=== PATIENT | female | born 1970 | race Caucasian/White ===

== ENCOUNTER → 2019-12-12 | Outpatient (CLI) | payer BC ==
--- NOTE | 2019-12-13 08:53 | CT ---
EXAMINATION TYPE: CT ankle LT wo con DATE OF EXAM: 12/12/2019 COMPARISON: None HISTORY: 49-year-old female left ankle pain TECHNIQUE: Contiguous axial scanning of the left ankle without IV contrast. Coronal and sagittal sharmin nstructions performed. 3-D reconstructions generated on a dedicated independent workstation. CT DLP: 210.7 mGycm Automated exposure control for dose reduction was used. FINDINGS: There is end-stage degenerative change of the tibiotalar joint with [id number] articulation along t he anterior half with associated subchondral sclerosis, bulky marginal spurring, and mild bony remode ling. Large 1.2 cm geode within the medial malleolus. Extensive loose bodies are present measuring up to 1.7 cm anterior, 1.1 cm posteriorly, and 1.0 cm be low the lateral malleolus. In addition, there is moderate to severe degenerative change along the medial half of the posterior s ubtalar joint and moderate degenerative change along the middle subtalar joint. Some marginal spurring and subchondral cystic change at the talonavicular joint and also along the la teral aspect of the calcaneal cuboidal joint. Small delineation to the Achilles tendon. No acute fracture seen. IMPRESSION: 1. END-STAGE TIBIOTALAR JOINT OA WITH LAAR-MS-SDYY ARTICULATION AND MILD BONY REMODELING ALONG THE AN TERIOR HALF OF THE TIBIOTALAR JOINT. 2. EXTENSIVE LOOSE BODIES MEASURING UP TO 1.7 CM ANTERIORLY AND 1.1 CM POSTERIORLY. ADDITIONAL LOOSE BODIES MEASURING UP TO 1.0 CM BELOW THE LATERAL MALLEOLUS. 3. MODERATE TO SEVERE OSTEOARTHROSIS ALONG THE MEDIAL HALF OF THE POSTERIOR SUBTALAR JOINT AND MODERA TE WITHIN THE MIDDLE SUBTALAR JOINT. 4. MILD TO MODERATE DEGENERATIVE CHANGE IN THE MIDFOOT INVOLVING THE LATERAL ASPECT OF THE CALCANEOCU BOIDAL JOINT AND ALSO THE TALONAVICULAR JOINT.
== END | disposition home or self-care (01) ==
LOC: RADCTMAIN 16:59
PROVIDERS: ATTEND Orthopaedic Surgery
DX: M19.072 Primary osteoarthritis, left ankle and foot (principal)

== ENCOUNTER 2020-01-24 05:56 | Inpatient (IN) | payer BC ==
[2020-01-22 16:16] VITALS: BMI 25.8
[~2020-01-24 05:56] MED LIST: HYDROmorphone 0.5 MG/0.5 ML SYRINGE IVP PRN; LIDOCAINE 1% 20 ML VIAL (10MG/ML) FOR IV START INTRADERMA PRN; MIDAZOLAM 2 MG/2 ML VIAL IV PRN; fentaNYL (PF) 50 MCG/ML 2 ML AMP IVP PRN
[2020-01-24] MEDS: LACTATED RINGERS 1,000 ML IV SCH ×4 (06:27→11:07)
[2020-01-24] MEDS: DEXAMETHASONE SOD PHOSPHATE 10 MG/ML 1 ML VIAL IV ONE ×2 (06:38→11:07)
[2020-01-24] MEDS: ONDANSETRON 4 MG/2 ML VIAL IVP ONE ×2 (06:39→11:07)
[2020-01-24] MEDS ORDERED: GLYCOPYRROLATE 0.2 MG/ML 2 ML VIAL ONE (07:35)
[2020-01-24] MEDS ORDERED: ROPIVACAINE 5 MG/ML 30 ML VIAL ONE (07:35)
[2020-01-24] MEDS ORDERED: NEOSTIGMINE 1 MG/ML 10 ML VIAL ONE (07:35)
[2020-01-24] MEDS ORDERED: HYDROmorphone (PF) 1 MG/ML ONE (07:35)
[2020-01-24] MEDS ORDERED: fentaNYL (PF) 50 MCG/ML 2 ML AMP ONE (07:35)
[2020-01-24] MEDS ORDERED: DEXAMETHASONE SOD PHOSPHATE 4 MG/ML 1 ML VIAL ONE (07:35)
[2020-01-24] MEDS ORDERED: ROCURONIUM BROMIDE 10 MG/ML 5 ML VIAL IV ONE (07:35)
[2020-01-24] MEDS ORDERED: PROPOFOL 10 MG/ML 20 ML VIAL IV ONE (07:35)
[2020-01-24] MEDS ORDERED: SUCCINYLCHOLINE CHLORIDE 100 MG/5 ML SYR IV ONE (07:35)
[2020-01-24] MEDS ORDERED: LIDOCAINE 1% INJ 10MG/ML (20 ML MDV) ONE (07:35)
[2020-01-24] MEDS ORDERED: LACTATED RINGERS 1,000 ML IV ONE (10:00)
[2020-01-24] MEDS ORDERED: SENNOSIDES-DOCUSATE SODIUM 1 EACH TAB PO PRN (10:40)
[2020-01-24] MEDS ORDERED: HYDROcodone/APAP 5-325MG 1 EACH TAB PO PRN (10:40)
[2020-01-24] MEDS ORDERED: hydrOXYzine PAMOATE 25 MG CAP PO PRN (10:40)
[2020-01-24] MEDS ORDERED: HYDROmorphone 0.5 MG/0.5 ML SYRINGE IVP PRN (10:40)
[2020-01-24] MEDS ORDERED: ONDANSETRON 4 MG/2 ML VIAL IVP PRN (10:40)
--- NOTE | 2020-01-24 10:51 | P.OP ---
Date of Procedure: 01/24/20 Preoperative Diagnosis: Posttraumatic left ankle and subtalar arthritis Postoperative Diagnosis: Same Procedure(s) Performed: 1. Left tibiotalocalcaneal fusion (fusion of the tibia talar joint through an anterior approach and fusion of the subtalar joint through a sinus tarsi approach) 2. Application of short leg splint by physician, left ankle Anesthesia: BRENDA, jaime Surgeon: Gorge Garsia [employer] Instructor #1: Paige Harman Estimated Blood Loss (ml): 5 IV fluids (ml): 1,200 Pathology: none sent Condition: stable Disposition: PACU Indications for Procedure: The patient is a very pleasant previously healthy 49-year-old female who sustained severe trauma resulting in the left ankle and pelvis fracture about 30 years ago. She went on to develop progressively worsening posttraumatic arthritis in the ankle and subtalar joint. She initially managed with nonsurgical treatment including activity modification, braces, occasional corticosteroid injections, and NSAID pain medications. She failed nonsurgical treatment and came to my office specifically to discuss surgical options. We discussed joint sparing procedure such as cheilectomy but due to the extent of the arthritis I thought they would be futile. We discussed joint sacrificing procedures including a total ankle replacement and fusion. Due to the amount of arthritic changes in the subtalar joint I also felt that the subtalar joint needed to be included in surgery. We had a long discussion on ankle replacements and ankle fusions. The patient is relatively young 49 and is very active working out and hiking. One option for her was an ankle replacement and subtalar fusion and the second option discussed was a tibial talocalcaneal fusion. Based on the patient's relatively young age and desired high activity level I thought that the risk of early failure of an ankle replacement was too high. My recommendation was to fuse both the ankle and the subtalar joint. We discussed that my surgical plan was to use an anterior approach to the ankle so if in the future she requires conversion to a total ankle replacement she will have both of the malleoli and anterior approach available. The patient agreed to this. She was well aware of the potential risks and limitations in function of the tibial talocalcaneal fusion, but wanted something durable so she could attempt to work out. I stressed that she may have some limitations in function. She understood and agreed to this. We discussed potential risks and complications of surgery including but not limited to risk of anesthesia, infection, delayed wound healing, damage to local blood vessels or nerves, nonunion, malunion, systematic hardware, intraoperative fracture, postoperative fracture, DVT, PE, other medical complications, generalized to satisfaction with surgery, an inability to regain preinjury level of function, need for further surgery, and possibly loss of life or limb. Description of Procedure: The patient was identified in preoperative holding and the correct left leg was marked with my initials. I reviewed the consent form with the patient and her mom. All their questions were answered. The patient was then brought back to the operating room by anesthesia after receiving a block in preoperative holding. The patient was positioned on the or table where general anesthetic and preoperative antibiotics were given. A tourniquet was applied the proximal aspect the left thigh. A bump was placed on the left buttock internally rotating the leg to neutral. The right leg was secured to the table with foam tape. A ramp was placed under the left leg to facilitate imaging. The left leg was then prepped and draped in standard sterile fashion. Prior to starting surgery timeout was performed identifying the correct patient, operative extremity, and procedure. The patient's leg was then elevated, exsanguinated with an Esmarch bandage, and the tourniquet was inflated to 250 mmHg. I began by outlining a straight anterior incision to the ankle. Skin incision was made with a scalpel. Dissection was carried down carefully to the subcutaneous tissue with tenotomy scissors. The branch of the superficial peroneal nerve was identified distally in the incision carefully retracted laterally. I sharply incised the extensor retinaculum and developed the interval between the tibialis anterior and EHL tendon. Crossing veins were controlled with electrocautery. The neurovascular bundle was identified and retracted laterally. The capsule was incised longitudinally in line with the skin incision and the joint was exposed. There was a large loose body in the anterior recess of the tibiotalar joint which was excised and handed off to the back table. On inspection of the joint there was complete articular cartilage loss from the talar dome and tibial plafond and. Using a series of curettes and osteotomes the bone was thoroughly fenestrated to facilitate fusion. The wound was irrigated and all cartilage remnants were removed. Attention was then turned to the subtalar joint. A sinus tarsi incision was marked out from the tip of the fibula extending distally over the posterior facet of the subtalar joint toward the fourth ray. Skin incision was made with a scalpel and dissection was carried down carefully through the subcutaneous tissue. The peroneal tendons were identified and retracted plantarly. The capsule of the subtalar joint was opened. Remaining articular cartilage was removed using curettes and osteotomes. K wires were placed to distract the joint. At this point a 2.5 mm drill bit was used to thoroughly perforate the exposed subchondral bone of both the ankle and subtalar joint to facilitate fusion. A mixture of augment and crushed local bone graft was mixed into a slurry and packed into both the fusion sites. I then positioned the ankle for fusion and K wires were placed across the joint to hold the reduction. Its position was verified both clinically and radiographically. I then positioned the subtalar joint for fusion and held the reduction with a K wire placed up to the anterior process of the calcaneus and into the talar head. At this point I elected to place an anterior fusion plate over the ankle joint. The joint was centered and held in place an olive-tipped K wire. 2 nonlocking 3.5 mm screws were placed in the talar head. As the screws were seated the plate shifted laterally but still centered over the tibial canal. A nonlocking, cannulated 7.0 mm screw was then placed through the plate and across the subtalar joint jittering excellent compression. An axial view was obtained verifying that the screw was within the calcaneus. I then placed 2 nonlocking 4.5 mm screws proximal to the ankle joint through oblong holes. The screws were placed proximally through the oblong holes to generate compression. A nonlocking 4.5 mm screw was placed in the most proximal hole of the plate taking care to angle the screw medially due to lateral position of the plate. A bicortical screw was placed. I then placed a final locking 4.5 mm screw proximal to the ankle. Final fluoroscopic images were taken. The wound was thoroughly irrigated and closed in layers with 0 Vicryl for the ankle capsule, a running 0 Vicryl in the extensor retinaculum, 3- 0 Monocryl for the deep subcu, and 3-0 nylon Algor modification of the Donati stitch for the skin. The sinus tarsi incision was irrigated and closed in layers. The tourniquet was let down. I verified all instrument, sponge, and sharp counts were correct. A sterile dressing consisting of Betadine soaked Ad aptic, 4 x 4, and web roll was applied. The patient was then awoken from her anesthetic transferred from the OR table to a gurney, and brought to recovery having tolerated the procedure well. Skye schuster PA-C was required as a skilled vet assistant for patient positioning, surgical exposure, retraction, placement of hardware, closure of wound, and application of splint. Plan: The patient is going to be admitted overnight for 2 doses of postoperative antibiotics, DVT prophylaxis with Lovenox, and physical therapy. She will also need pain control. I would like to transition her from IV to oral pain medications. She can discharge home when her pain is controlled with oral pain medicine and she passes physical therapy. She will need follow-up in the office in 2 weeks for splint removal, wound check, and nonweightbearing x-rays of the ankle out of the splint.
[2020-01-24] MEDS: HYDROmorphone 0.5 MG/0.5 ML SYRINGE IVP PRN (11:30)
--- NOTE | 2020-01-24 12:04 | XR ---
Limited left ankle HISTORY: Arthrodesis 3 intraoperative C-arm images document the procedure
--- NOTE | 2020-01-24 12:04 | FL ---
Fluoroscopy HISTORY: Arthrodesis 40 seconds fluoroscopy time supplied to the referring clinician. 3 intraoperative C-arm images docum ent the procedure. See dictated report from orthopedic surgery.
[2020-01-24 12:15] LABS: Basophils % (A) 0 %; Eosinophils % (A) 0 %; HCT 42.1 % (34.0-46.0); HGB 13.9 gm/dL (11.4-16.0); Lymphocytes # (A) 0.8 k/uL (1.0-4.8); Lymphocytes % (A) 8 %; MCH 31.4 pg (25.0-35.0); MCV 95.2 fL (80.0-100.0); Mean Platelet Volume 6.9; Monocytes # (A) 0.1 k/uL (0-1.0); Monocytes % (A) 1 %; Neutrophils # (A) 8.8 k/uL (1.3-7.7); Neutrophils % (A) 89 %; Platelet Count 305 k/uL (150-450); RBC 4.42 m/uL (3.80-5.40); RDW 12.8 % (11.5-15.5); WBC 9.8 k/uL (3.8-10.6)
[2020-01-24] MEDS: HYDROcodone/APAP 5-325MG 1 EACH TAB PO PRN ×2 (14:32→22:36)
[2020-01-24] MEDS: HYDROmorphone 1 MG/ML 1 ML SYRINGE IVP PRN (19:17)
[2020-01-25] MEDS: HYDROmorphone 1 MG/ML 1 ML SYRINGE IVP PRN ×2 (00:08→04:06)
[2020-01-25] MEDS: LACTATED RINGERS 1,000 ML IV SCH ×3 (06:15→14:09)
[2020-01-25] MEDS: HYDROcodone/APAP 5-325MG 1 EACH TAB PO PRN (07:29)
[2020-01-25] MEDS: ENOXAPARIN 40 MG/0.4 ML SYRINGE SQ SCH (07:29)
[2020-01-25] MEDS ORDERED: HYDROcodone/APAP 7.5-325MG 1 EACH TAB PO PRN (08:22)
[2020-01-25] MEDS: HYDROmorphone 0.5 MG/0.5 ML SYRINGE IVP PRN ×3 (14:05→23:02)
--- NOTE | 2020-01-25 16:02 | P.DS ---
Providers Date of admission: 01/25/20 00:26 Expected date of discharge: 01/25/20 Attending physician: Gorge Garsia Primary care physician: Stated None Hospital Course: This is a 49-year-old female who is otherwise healthy that sustained a left ankle fracture about 30 years ago. She went on to develop left severe posttraumatic tibiotalar and subtalar joint arthritis. After nonsurgical treatment failed to control the patient's symptoms, the patient requested surgery. Patient underwent a left tibiotalar and subtalar joint fusion on 01/24/[address] Garsia. The patient was admitted to [facility] following this procedure. Procedure was performed without complication or sequelae. Patient is doing well postoperatively. Vital signs and postoperative labs are stable on postoperative day #1. The patient is remaining nonweightbearing on the operative leg, and transferring with a walker with minimal issue. Patient was seen at bedside this morning. Patient states that she is feeling well this morning. Her pain was uncontrolled throughout the night, although she is feeling better this morning and states is currently controlled. She's been up with physical therapy this morning. She is ambulating with a walker with minimal issue. She denies chest pain, shortness breath, nausea, vomiting, fevers, chills. Vital signs stable. On exam the patient is sitting up in bed in no apparent distress. Patient is alert and oriented 3. On inspection of the left lower extremity, a Bulky Whitman splint is in place. The splint is clean, dry, intact. The toes are warm and well perfused with brisk capillary refill. Sensation is intact to the toes. There is no pain to passive range of motion of toes. She is able to actively move her toes without difficulty. Right calf if soft and nontender. Right dorsalis pedis pulse +2. The patient is discharged home in good condition. Please see discharge orders. Please refer to the med rec for accurate list of medications. Plan - Discharge Summary Discharge Rx Participant: Yes New Discharge Prescriptions: New Aspirin 325 mg PO BID #28 tab Docusate [Colace] 100 mg PO BID #60 capsule HYDROcodone/APAP 7.5-325MG [[place] 7.5-325] 1 tab PO Q4H PRN 7 Days #40 tab PRN Reason: Pain Discharge Medication List Aspirin 325 mg PO BID #28 tab 01/25/20 [Rx] Docusate [Colace] 100 mg PO BID #60 capsule 01/25/20 [Rx] HYDROcodone/APAP 7.5-325MG [[place] 7.5-325] 1 tab PO Q4H PRN 7 Days #40 tab 01/25/20 [Rx] Follow up Appointment(s)/Referral(s): Gorge Garsia MD [Medical Doctor] - 2 Weeks Activity/Diet/Wound Care/Special Instructions: -Strict non-weight bearing on your operative leg. Do not remove your splint; Keep splint clean, dry, and intact -Use crutches, knee scooter, or a walker to ambulate after surgery. -Elevate and ice operative leg to help reduce swelling and control pain. -Take pain medications as prescribed. Take Colace as a stool softener. Take aspirin as prescribed for blood clot prevention. -Follow-up appointment with Dr. Garsia in the office in 2 weeks. -Call the office with any questions or concerns, Discharge Disposition: HOME SELF-CARE
[2020-01-25] MEDS: HYDROcodone/APAP 10-325MG 1 EACH TAB PO PRN ×2 (16:29→20:46)
[2020-01-25] MEDS ORDERED: HYDROmorphone 0.5 MG/0.5 ML SYRINGE IVP STA (19:18)
[2020-01-26] MEDS: HYDROcodone/APAP 10-325MG 1 EACH TAB PO PRN ×4 (00:46→13:32)
[2020-01-26] MEDS: HYDROmorphone 0.5 MG/0.5 ML SYRINGE IVP PRN (02:24)
[2020-01-26] MEDS: LACTATED RINGERS 1,000 ML IV SCH ×2 (03:52→11:35)
[2020-01-26 07:35] VITALS: BP 118/70; PULSE 80; RESP 17; TEMP 97.7
[2020-01-26] MEDS: HYDROmorphone 1 MG/ML 1 ML SYRINGE IVP PRN (07:40)
[2020-01-26] MEDS: ENOXAPARIN 40 MG/0.4 ML SYRINGE SQ SCH (07:41)
--- NOTE | 2020-01-26 09:53 | P.PN ---
Progress Note - Text Progress Note Date: 01/26/20 This is an addendum to discharge summary. The patient's discharge was held yesterday secondary to pain management issues. Patient states that she is doing better today. She will be discharged to home today. Please see previous discharge summary. Her [place] has been increased to 10/325 mg.
--- NOTE | 2020-01-28 14:16 | P.ANPRN ---
Procedure Note - Anesthesia - Nerve Block Performed Left Popliteal Single Time Out Performed: Yes Date of Procedure: 01/24/20 Procedure Start Time: : Procedure Stop Time: :09 Location of Patient: PreOp Indication: Acute Post-Operative Pain, Requested by Surgeon Sedation Type: Sedate with meaningful contact maintained Preparation: Sterile Prep Position: Right Lateral Needle Types: Pajunk Needle Gauge: 21 Ultrasound used to visualize needle placement: Yes Ultrasound used to observe medication spread: Yes Blood Aspirated: No Pain Paresthesia on Injection Noted: No Resistance on Injection: Normal Image Stored and Saved: Yes Events: Uneventful and Well Tolerated (ropi .5% 30 cc plus dexamethasone 4 mg)
== END 2020-01-26 14:37 | disposition home or self-care (01) | DRG 494 ==
LOC: OR 05:56 → 4SSUR 10:27 → OR 01-25 00:26 → OBSVTOIN 01-26 07:52
PROVIDERS: ADMIT Orthopaedic Surgery; ATTEND Orthopaedic Surgery
PROC: 0SGG04Z Fusion of Left Ankle Joint with Internal Fixation Device, Open Approach (ICD-10-PCS; 2020-01-24)
PROC: 0SGG07Z Fusion of Left Ankle Joint with Autologous Tissue Substitute, Open Approach (ICD-10-PCS; principal; 2020-01-24 07:30)
DX: M19.172 Post-traumatic osteoarthritis, left ankle and foot (principal); E78.5 Hyperlipidemia, unspecified; V89.2XXS Person injured in unspecified motor-vehicle accident, traffic, sequela; Z87.81 Personal history of (healed) traumatic fracture; Z90.710 Acquired absence of both cervix and uterus; Z83.3 Family history of diabetes mellitus; Z82.49 Family history of ischemic heart disease and other diseases of the circulatory system
CPT/HCPCS: 64445; 76942; 82306; 85025; 94760

== ENCOUNTER → 2020-08-29 | Outpatient (CLI) | payer BC ==
--- NOTE | 2020-09-01 09:39 | MM ---
Reason for exam: screening (asymptomatic). Last mammogram was performed 1 year and 3 months ago. History: Patient is postmenopausal. Reductions of both breasts, 1988. Physical Findings: A clinical breast exam by your physician is recommended on an annual basis and results should be correlated with mammographic findings. MG 3D Screening Mammo W/Cad Bilateral CC and MLO view(s) were taken. Prior study comparison: May 14, 2019, bilateral MG 3d screening mammo w/cad. December 31, 2012, mammogram, performed at [facility]. The breast tissue is heterogeneously dense. This may lower the sensitivity of mammography. No suspicious calcifications are seen. Increasing spiculation upper outer right breast. ASSESSMENT: Incomplete: need additional imaging evaluation, BI-RAD 0 RECOMMENDATION: Special view mammogram of the right breast. If lesion persists on supplemental views, image directed ultrasound is recommended. [facility] will attempt to contact patient to return for supplemental views and ultrasound if indicated.
== END | disposition home or self-care (01) ==
LOC: RADMAMWWP 12:08
PROVIDERS: ATTEND Obstetrics & Gynecology
DX: Z12.31 Encounter for screening mammogram for malignant neoplasm of breast (principal)
CPT/HCPCS: 77063; 77067

== ENCOUNTER → 2020-09-03 | Outpatient (CLI) | payer BC ==
--- NOTE | 2020-09-03 09:34 | MM ---
Reason for exam: additional evaluation requested from abnormal screening. Last mammogram was performed less than 1 month ago. History: Patient is postmenopausal. Excisional biopsy of the right breast, July 2020. Reductions of both breasts, 1988. Taking estrogen beginning at age 47. Taking other hormone beginning at age 47. Physical Findings: Nurse Summary: 1cm nodule in the right breast at 9 o'clock (nurse keven). MG 3D Work Up W/Cad RT Spot compression CC, spot compression MLO, and LM view(s) were taken of the right breast. Prior study comparison: August 29, 2020, bilateral MG 3d screening mammo w/cad. May 14, 2019, bilateral MG 3d screening mammo w/cad. Area of distortion upper outer quadant right breast. Ultrasound recommended. These results were verbally communicated with the patient and result sheet given to the patient on 09/03/20. ASSESSMENT: Incomplete: need additional imaging evaluation, BI-RAD 0 RECOMMENDATION: Ultrasound of the right breast. Manage patient on a clinical basis.
--- NOTE | 2020-09-03 12:05 | USB ---
Reason for exam: additional evaluation requested from abnormal screening. History: Patient is postmenopausal. Excisional biopsy of the right breast, July 2020. Reductions of both breasts, 1987. Taking estrogen beginning at age 47. Taking other hormone beginning at age 47. US Breast Workup Limited RT Right limited breast ultrasound including focal area of concern, retroareolar and axilla demonstrates a 0.4 x 1.4 x 0.2cm complex fluid at dermis at 9 o'clock, suspect improving abscess. These results were verbally communicated with the patient and result sheet given to the patient on 09/03/20. ASSESSMENT: Probably benign, BI-RAD 3 RECOMMENDATION: Ultrasound of the right breast in 3 months. Manage patient on a clinical basis.
== END | disposition home or self-care (01) ==
LOC: RADMAMWWP 07:41
PROVIDERS: ATTEND Obstetrics & Gynecology
DX: R92.8 Other abnormal and inconclusive findings on diagnostic imaging of breast (principal)
CPT/HCPCS: 77061; 77065

== ENCOUNTER → 2022-03-22 | Outpatient (CLI) | payer BC ==
--- NOTE | 2022-03-24 09:26 | MM ---
Reason for exam: screening (asymptomatic). Last mammogram was performed 1 year and 7 months ago. History: Patient is postmenopausal. Excisional biopsy of the right breast, July 2020. Reductions of both breasts, 1988. Taking estrogen beginning at age 47. Taking other hormone beginning at age 47. Physical Findings: A clinical breast exam by your physician is recommended on an annual basis and results should be correlated with mammographic findings. MG 3D Screening Mammo W/Cad Bilateral CC and MLO view(s) were taken. Prior study comparison: August 29, 2020, bilateral MG 3d screening mammo w/cad. May 14, 2019, bilateral MG 3d screening mammo w/cad. The breast tissue is heterogeneously dense. This may lower the sensitivity of mammography. Finding: There is stable architectural distortion in the upper outer quadrant of the right breast consistent with known excisional changes. There is no discrete abnormality. Stable distortion left upper outer quadrant consistent with known reduction changes. ASSESSMENT: Benign, BI-RAD 2 RECOMMENDATION: Routine screening mammogram of both breasts in 1 year.
== END | disposition home or self-care (01) ==
LOC: RADMAMWWP 16:55
PROVIDERS: ATTEND Obstetrics & Gynecology
DX: Z12.31 Encounter for screening mammogram for malignant neoplasm of breast (principal); Z78.0 Asymptomatic menopausal state
CPT/HCPCS: 77063; 77067

== ENCOUNTER → 2024-09-14 | Outpatient (CLI) | payer BC ==
--- NOTE | 2024-09-14 13:41 | MM ---
Reason for Exam: Clinical finding. Last mammogram was performed 2 year(s) and 6 month(s) ago. Patient History: Menarche at age 14. First Full-Term at age 30. Late child-bearing (after 30). Hysterectomy at age 40. Postmenopausal. Colorectal cancer at or over age 50. Currently using Estrogen, starting at age 47. 1987, Bilateral Reduction. 07/2020, Excisional Biopsy on the Right side. Risk Values: Judy 5 year model risk: 1.7%. NCI Lifetime model risk: 12.2%. Tissue Density: The breasts are heterogeneously dense, which may obscure small masses. Findings: Analyzed By CAD. Masses in the bilateral breasts. In the left breast approximately 7.0 cm from the nipple in the upper outer aspect measuring 25 mm. In the right breast approximately 4.0 cm from the nipple in the upper outer aspect measuring 14 mm. Overall Assessment: Incomplete: need additional imaging evaluation, BI-RAD 0 Management: Diagnostic Breast Ultrasound of both breasts. Results were given to the patient verbally at the time of exam. Patient should continue monthly self-breast exams. A clinical breast exam by your physician is recommended on an annual basis. This exam should not preclude additional follow-up of suspicious palpable abnormalities. Note on Judy scores and lifetime risk: 1. A Judy score greater than 3% is considered moderate risk. If this is the case, consider specialist referral to assess eligibility for a risk reducing agent. 2. If overall lifetime risk for the development of breast cancer is 20% or higher, the patient may qualify for future screening with alternating mammogram and breast MRI. [facility], , 09/14/2024 1:39 PM. Electronically signed and approved by: Andres Adams DO
--- NOTE | 2024-09-14 14:35 | USB ---
Reason for Exam: Additional evaluation requested from prior study. Patient History: Menarche at age 14. First Full-Term at age 30. Late child-bearing (after 30). Hysterectomy at age 40. Postmenopausal. Colorectal cancer at or over age 50. Currently using Estrogen, starting at age 47. 1988, Bilateral Reduction. 07/2020, Excisional Biopsy on the Right side. Risk Values: Judy 5 year model risk: 1.7%. NCI Lifetime model risk: 12.2%. Technique: Method: Targeted. Prior Study Comparison: 08/29/2020 Bilateral Screening Mammogram, [facility]. 09/03/2020 Right Diagnostic Mammogram, [facility]. 09/03/2020 Right Diagnostic Ultrasound, [facility]. 03/22/2022 Bilateral Screening Mammogram, [facility]. Findings: The upper outer quadrant of both breasts, the axilla of both breasts and the retroareolar of both breasts were scanned. Technique utilized:US breast limited BILAT Image; Ultrasound imaging of: Area of concern, retroareolar region and axilla. Right breast: Hypoechoic irregular shaped mass at 11:00 7 cm the nipple corresponding with same day mammogram measuring 9 x 5 x 10 mm. This is suspicious for malignancy. Left breast hypoechoic mass in the area of palpable abnormality at 2:00 7 cm and measuring 27 x 17 x 21 mm corresponding with same day mammography findings. This is suspicious for malignancy. Overall Assessment: Highly suggestive of malignancy, BI-RAD 5 Management: Ultrasound Core Biopsy of both breasts. A clinical breast exam by your physician is recommended on an annual basis and results should be correlated with mammographic findings. This exam should not preclude additional follow-up of suspicious palpable abnormalities. Results were given to the patient verbally at the time of exam. [facility], , 09/14/2024 2:32 PM. Electronically signed and approved by: Andres Adams DO
== END | disposition home or self-care (01) ==
LOC: RADMAMWWP 13:13
PROVIDERS: ATTEND Obstetrics & Gynecology
CPT/HCPCS: 77062; 77066

== ENCOUNTER → 2024-09-28 | Day surgery (SDC) | payer BC ==
--- NOTE | 2024-10-05 11:48 | MM ---
Reason for Exam: Post Procedure Mammogram. Last screening mammogram was performed less than 1 month ago. Patient History: Menarche at age 14. First Full-Term at age 30. Late child-bearing (after 30). Hysterectomy at age 40. Postmenopausal. Colorectal cancer at or over age 50. Currently using Estrogen, starting at age 47. 1987, Bilateral Reduction. 07/2020, Excisional Biopsy on the Right side. Risk Values: Judy 5 year model risk: 1.7%. NCI Lifetime model risk: 12.2%. Prior Study Comparison: 09/03/2020 Right Diagnostic Mammogram, [facility]. 03/22/2022 Bilateral Screening Mammogram, [facility]. 09/14/2024 Bilateral MG 3D diag mammo w/cad BRIDGER, [facility]. Tissue Density: The breasts are heterogeneously dense, which may obscure small masses. Pathology Description: Location: 11 o'clock. Marker Left Behind. Needle Type: Mammotome Cores: 4 Gauge: 13 Pathology Description: Location: 2 o'clock. Marker Left Behind. Needle Type: Mammotome Cores: 5 Gauge: 13 The procedure of ultrasound guided core biopsy was explained to the patient. Benefits, alternatives, and risks were discussed. An informed consent was then obtained. The patient was placed in supine positioning for imaging and for the procedure. The overlying skin was prepped and draped in usual sterile fashion. Lidocaine was used as anesthetic into the skin and each breast in turn followed by lidocaine/epinephrine into the subcutaneous tissue up to area of concern in the left breast. LEFT: 2:00 BI-RADS 2.6 cm vertical mass: Under ultrasound guidance, a 13-gauge vacuum-assisted Mammotome Elite biopsy gun was used to obtain 5 core samples. Following this, a Hydromark butterfly clip was left in lesion. RIGHT: 11:00 oval, circumscribed, hypoechoic 1.0 x 0.5 x 0.9 cm lesion: Under ultrasound guidance, a 13-gauge vacuum-assisted Mammotome Elite biopsy gun was used to obtain 4 core samples. Following this, a wing clip was left in lesion. The patient tolerated the procedure well without any immediate complication. The patient was kept in the radiology department for short stay after the procedure and then discharged home in stable condition. Postprocedure mammogram: The patient was transferred to mammography for physician ordered post procedure mammogram for clip placement verification. On the right, the wing clip is located in the posterior upper-outer quadrant. Possible subtle mammographic nodularity here. Overall low suspicion. On the left, the butterfly clip is at the mammographic mass. IMPRESSION: Successful, uncomplicated ultrasound guided core biopsy of a lesion in either breast, (1) right being of overall low suspicion and (2) left BI-RADS 5 lesion. Full pathology results to follow. [facility], Workstation: [id number], 09/28/2024 4:34 PM. Pathology Results: Result: Malignant, Invasive ductal carcinoma. Pathology and radiology were reviewed. Findings are concordant. A. RIGHT BREAST, 11:00, ULTRASOUND GUIDED NEEDLE CORE BIOPSY: Rare atypical foci suspicious for invasive ductal carcinoma in background fibrosis/scar with histiocytes. See Comment. B. LEFT BREAST, 2:00, ULTRASOUND GUIDED NEEDLE CORE BIOPSY: Invasive moderately differentiated ductal carcinoma (Grade 2). See Surgical Pathology Cancer Case Summary and Comment. Overall Assessment: Malignant Assessment: MG diagnostic mammo BI wo CAD - Bilateral: Known biopsy proven malignancy, BI-RAD 6. Management: Diagnostic Breast MRI of both breasts. Consider MRI. Electronically signed and approved by: Mirtha Oconnor M.D. Radiologist
== END ==
LOC: RADUSWWP 10:25
PROVIDERS: ATTEND Surgery
DX: C50.412 Malignant neoplasm of upper-outer quadrant of left female breast (principal); N60.31 Fibrosclerosis of right breast
CPT/HCPCS: 88305; 88342; 88341; 77066; 19083 ×2; A4648

== ENCOUNTER → 2024-10-05 | Outpatient (CLI) | payer BC ==
[2024-10-05 07:56] VITALS: BP 129/76; PULSE 83; RESP 17; TEMP 98.3
--- NOTE | 2024-10-05 08:35 | P.GSCN ---
History of Present Illness Consult date: 10/05/24 Reason for Consult: Biopsy-proven left breast invasive ductal carcinoma, right breast suspicious biopsy Requesting physician: Kenyatta Miller History of present illness: Alexa is a 54-year-old female seen in consultation for Dr. Her franca winters regarding a biopsy-proven left breast invasive ductal carcinoma, and a right breast highly suspicious biopsy. She underwent a bilateral screening mammogram on 09-14-2024. This revealed a 25 mm lesion 7 cm from the nipple in the upper outer quadrant in the left breast and in the right breast a 14 mm lesion 4 cm from the nipple in the upper outer quadrant. She ultimately underwent an ultrasound-guided core biopsy of both lesions. The ultrasound on the left revealed invasive ductal carcinoma grade 2 on the right rare atypical foci suspicious for invasive ductal carcinoma. On the left this was ER/ME positive HER2 equivocal. She felt a lesion in her left breast about 3 weeks ago, this has not changed. She had a mammogram about 6 months ago which was normal. She had a Grail test/Galleri done May 10 2024 which was negative. She had colon cancer found on colonoscopy and a colon resection about 18 months ago. This was done by Dr. Sumner at [facility]. She had a breast reduction done at 19. She had a left breast abscess drained in the left breast in the past. She is not complaining of any recent trauma or infection in the breast. She is not complaining of any nipple discharge or skin changes. She has not had formal genetic testing. Caffeine: energy drink daily nicotine: none chocolate: occasional BCP: < 5 years in earyl 20's hormones: bio-T pellets for 7-8 years, last placed about three months ago Family History: patient: colon cancer Hormonal History: menarche: 14 (one twins)M3, age at first live : 30, breast fed: yes used clomid after the three miscarriages menopause: partial hysterectomy at 40; started hormones about 46 was having night sweats Surgical History: hysterectomy, left ovaries colon resection out patient all through the colon ankel fusion 2020 hiatal hernia Medical History: vivance occasional resperidal for high cholesterol difficulty swallowing refulx Social History: nicotine: none alcohol: occasional drugs: none Review of Systems - Constitutional Denies fever, Denies weight loss - EENT Eyes: denies blurred vision Ears: deny: decreased hearing, tinnitus Ears, nose, mouth and throat: Denies dysphagia - Breasts bilateral: as per HPI - Cardiovascular Denies chest pain, Denies shortness of breath - Respiratory Denies cough, Denies 7 - Gastrointestinal Reports as per HPI - Genitourinary Genitourinary: Denies dysuria, Denies hematuria Menstruation: Reports post hysterectomy - Musculoskeletal Reports as per HPI - Integumentary Denies rash, Denies unusual bruising - Neurological Denies headaches, Denies syncope - Psychiatric Reports as per HPI - Endocrine Reports as per HPI - Hematologic/Lymphatic Denies easy bleeding, Denies easy bruising - Allergic/Immunologic Reports as per HPI Past Medical History Past Medical History: Osteoarthritis (OA) History of Any Multi-Drug Resistant Organisms: None Reported Past Surgical History: Section, Hysterectomy Past Anesthesia/Blood Transfusion Reactions: Postoperative Nausea & Vomiting (PONV) Past Psychological History: No Psychological Hx Reported Smoking Status: Never smoker Past Alcohol Use History: Occasional Past Drug Use History: None Reported - Past Family History Mother Family Medical History: No Reported History Medications and Allergies Home Medications Medication Instructions Recorded Confirmed Type No Known Home Medications 09/17/24 10/05/24 History Allergies Allergy/AdvReac Type Severity Reaction Status Date / Time No Known Allergies Allergy Verified 10/05/24 07:53 Surgical - Exam - General no distress - Eyes normal ocular movement - Neck trachea midline - Respiratory normal respiratory effort, clear to auscultation - Cardiovascular Rhythm: regular Heart Sounds: normal: S1, S2 - Abdomen Abdomen: soft, non tender, no guarding, no rigid, no rebound - Integumentary no rash, no abnormal pigmentation - Neurologic no disoriented, no combative - Musculoskeletal normal gait - Psychiatric oriented to time, oriented to person, oriented to place, speech is normal, memory intact Breast Exam: BRA: 34D (was very large prior to the reduction not know the size) Inspection: Bilateral scars from prior reduction surgery, bilateral grade 2 ptosis Palpation: Right breast: Multi positional exam no dominant masses or nodules of concern, ecchymosis lateral aspect of the breast related to recent biopsy Right axilla: No adenopathy of concern Left breast: Multi positional exam approximately 2 x 3 cm mass in the upper outer quadrant no other dominant masses or nodules of concern, ecchymosis related to recent core biopsy Left axilla: No adenopathy of concern Results Mammogram and ultrasound personally reviewed and interpreted Assessment and Plan Assessment: Impression: 1. Left breast invasive ductal carcinoma ER/ME positive 2. Right breast core biopsy highly suspicious 3. High cholesterol 4. Reflux 5. Mammogram done prior to this 1 did not show any lesions of concern Plan: 1. Presentation of case at tumor board 2. hold hormone replacement 3. genetic testing CC: Dr. Miller
== END ==
LOC: WWCWWP 07:40
PROVIDERS: ATTEND Surgery
DX: R92.8 Other abnormal and inconclusive findings on diagnostic imaging of breast (principal); C50.911 Malignant neoplasm of unspecified site of right female breast; K21.9 Gastro-esophageal reflux disease without esophagitis; E78.00 Pure hypercholesterolemia, unspecified; Z17.0 Estrogen receptor positive status [ER+]; Z98.890 Other specified postprocedural states

== ENCOUNTER → 2024-10-15 | Outpatient (CLI) | payer BC ==
--- NOTE | 2024-10-22 08:34 | BMR ---
EXAM DATE: 10/15/2024 EXAM DESCRIPTION: MRI-Breast Bilat (W/WO Contrast) INDICATION: Upper-outer quadrant left breast cancer. History of right breast cancer. COMPARISON: Comparison is made with relevant prior imaging in PACS. CONTRAST: 7 cc of Gadavist TECHNIQUE: Multiplanar MRI imaging of both breasts was performed with a dedicated breast coil, before and after intravenous administration of gadolinium contrast, using the standard breast mass protocol. Computer-aided detection was used to aid in interpretation. Study was performed at [facility] with Radiologic interpretation by [facility]. FINDINGS: General breast composition: The breast is heterogeneously dense Background parenchymal enhancement: Moderate FINDINGS: Right Breast: Review of the dynamic contrast-enhanced series shows susceptibility artifact in the upper outer breast at posterior depth with surrounding subtle non mass enhancement at the site of known malignancy. The surrounding non mass enhancement measures 3.4 x 1.0 x 1.5 cm No axillary lymphadenopathy. Minimally prominent right internal thoracic chain lymph node measuring 0.6 cm (503:582, 301: Ninety-five). Left Breast: Review of the dynamic contrast-enhanced series shows an irregular mass in the upper outer quadrant mass with spiculated margins with clip in-situ measuring 2.9 x 1.9 x 2.6 cm (503:454, 601:46). The mass extends to lateral skin surface with tethering. An enlarged right level 1 axillary lymph node is present. Miscellaneous: Cholelithiasis. IMPRESSION: Right Breast: BI-RADS Category6- Known biopsy proven malignancy 1. Non mass enhancement in the upper outer right breast at the site of biopsied malignancy measuring 3.4 x 1.0 x 1.5 cm. 2. Prominent right internal thoracic chain lymph node, this is indeterminate. 3. No axillary lymphadenopathy. Recommendation: Surgical oncologic evaluation. Left Breast: BI-RADS Category 6- Known biopsy proven malignancy 1. 2.9 cm irregular mass in the upper outer breast at posterior depth the site of known malignancy. The mass extends to the lateral skin surface with tethering. 2. Focally ectatic irregular left axillary level 1 lymph node. Recommendation: Surgical oncologic evaluation. OVERALL ASSESSMENT -- BI-RADS 6 MTDD
== END | disposition home or self-care (01) ==
LOC: RADMRIMAIN 14:29
PROVIDERS: ATTEND Internal Medicine Hematology & Oncology
DX: C50.411 Malignant neoplasm of upper-outer quadrant of right female breast (principal); C50.412 Malignant neoplasm of upper-outer quadrant of left female breast; E78.5 Hyperlipidemia, unspecified; Z85.3 Personal history of malignant neoplasm of breast
CPT/HCPCS: 77049; A9585

== ENCOUNTER → 2024-11-06 | Outpatient (CLI) | payer BC ==
[2024-11-06 07:21] VITALS: BP 128/71; PULSE 45; RESP 16; TEMP 97.9
--- NOTE | 2024-11-06 07:22 | P.PN ---
Subjective Progress Note Date: 11/06/24 History of Present Illness Consult date: 10/05/24 Reason for Consult: Biopsy-proven left breast invasive ductal carcinoma, right breast suspicious biopsy Requesting physician: Kenyatta Miller History of present illness: Alexa is a 54-year-old female seen in consultation for Dr. Her franca winters regarding a biopsy-proven left breast invasive ductal carcinoma, and a right breast highly suspicious biopsy. She underwent a bilateral screening mammogram on 09-14-2024. This revealed a 25 mm lesion 7 cm from the nipple in the upper outer quadrant in the left breast and in the right breast a 14 mm lesion 4 cm from the nipple in the upper outer quadrant. She ultimately underwent an ultrasound-guided core biopsy of both lesions. The ultrasound on the left revealed invasive ductal carcinoma grade 2 on the right rare atypical foci suspicious for invasive ductal carcinoma. On the left this was ER/SC positive HER2 equivocal when initiallly seen. She felt a lesion in her left breast about 3 weeks ago, this has not changed. She had a mammogram about 6 months ago which was normal. She had a Grail test/Galleri done May 10 2024 which was negative. She had colon cancer found on colonoscopy and a colon resection about 18 months ago. This was done by Dr. Sumner at [facility]. She had a breast reduction done at 19. She had a left breast abscess drained in the left breast in the past. She is not complaining of any recent trauma or infection in the breast. She is not complaining of any nipple discharge or skin changes. HER2 status negative Genetic testing results are not yet available to us The patient recently returned from vacation and states that while on vacation she noticed some swelling under her left arm, additionally she was complaining of some discomfort and pulling in the left breast as well as a feeling of heat. Today she does not feel the enlarged node nor does she feel that he heat. Breast MRI was done here and PET scan done at [facility]; Caffeine: energy drink daily nicotine: none chocolate: occasional BCP: < 5 years in earyl 20's hormones: bio-T pellets for 7-8 years, last placed about three months ago Family History: patient: colon cancer Hormonal History: menarche: 14 (one twins)M3, age at first live : 30, breast fed: yes used clomid after the three miscarriages menopause: partial hysterectomy at 40; started hormones about 46 was having night sweats Surgical History: hysterectomy, left ovaries colon resection out patient all through the colon ankel fusion 2020 hiatal hernia Medical History: vivance occasional resperidal for high cholesterol difficulty swallowing refulx Social History: nicotine: none alcohol: occasional drugs: none Review of Systems - Constitutional Denies fever, Denies weight loss - EENT Eyes: denies blurred vision Ears: deny: decreased hearing, tinnitus Ears, nose, mouth and throat: Denies dysphagia - Breasts bilateral: as per HPI - Cardiovascular Denies chest pain, Denies shortness of breath - Respiratory Denies cough - Gastrointestinal Reports as per HPI - Genitourinary Genitourinary: Denies dysuria, Denies hematuria Menstruation: Reports post hysterectomy - Musculoskeletal Reports as per HPI - Integumentary Denies rash, Denies unusual bruising - Neurological Denies headaches, Denies syncope - Psychiatric Reports as per HPI - Endocrine Reports as per HPI - Hematologic/Lymphatic Denies easy bleeding, Denies easy bruising - Allergic/Immunologic Reports as per HPI Past Medical History Past Medical History: Osteoarthritis (OA) History of Any Multi-Drug Resistant Organisms: None Reported Past Surgical History: Section, Hysterectomy Past Anesthesia/Blood Transfusion Reactions: Postoperative Nausea & Vomiting (PONV) Past Psychological History: No Psychological Hx Reported Smoking Status: Never smoker Past Alcohol Use History: Occasional Past Drug Use History: None Reported - Past Family History Mother Family Medical History: No Reported History Medications and Allergies Home Medications Medication Instructions Recorded Confirmed Type No Known Home Medications 09/17/24 10/05/24 History Allergies Allergy/AdvReac Type Severity Reaction Status Date / Time No Known Allergies Allergy Verified 10/05/24 07:53 Objective - Vital Signs Vital signs: Intake & Output 11/05/24 11/06/24 11/06/24 18:59 06:59 18:59 Weight 70.307 kg - Constitutional General appearance: Present: cooperative - EENT Eyes: Present: EOMI ENT: Present: hearing grossly normal - Neck Neck: Present: normal ROM - Respiratory Respiratory: bilateral: CTA - Cardiovascular Heart sounds: normal: S1, S2 - Integumentary Integumentary: Present: normal turgor - Musculoskeletal Musculoskeletal: Present: gait normal - Psychiatric Psychiatric: Present: A&O x's 3, appropriate affect, intact judgment & insight - Additional findings Additional findings: Breast Exam: BRA: 34D (was very large prior to the reduction not know the size) Inspection: Bilateral scars from prior reduction surgery, bilateral grade 2 ptosis Palpation: Right breast: Multi positional exam no dominant masses or nodules of concern, ecchymosis lateral aspect of the breast related to recent biopsy Right axilla: No adenopathy of concern Left breast: Multi positional exam approximately 2 x 3 cm mass in the upper outer quadrant no other dominant masses or nodules of concern, ecchymosis related to recent core biopsy Left axilla: No adenopathy of concern Assessment and Plan Assessment: Impression: 1. Left breast invasive ductal carcinoma ER/SC positive 2. Right breast core biopsy highly suspicious 3. High cholesterol 4. Reflux 5. Mammogram done prior to this 1 did not show any lesions of concern Plan: check breast MRI check PET scan consider ultrasound of left axilla follow with Dr. Urban CC: Dr. Solares
--- NOTE | 2024-11-06 08:07 | USB ---
Reason for Exam: Clinical finding. Patient History: Menarche at age 14. First Full-Term at age 30. Late child-bearing (after 30). Hysterectomy at age 40. Postmenopausal. Colorectal cancer at or over age 50. Breast cancer, left, age 54. Currently using Estrogen, starting at age 47. 09/28/2024, US biopsy breast VAD RT on the Right side. 09/28/2024, Malignant US biopsy breast VAD LT on the left side. 1987, Bilateral Reduction. 07/2020, Excisional Biopsy on the Right side. Technique: Method: Targeted. Prior Study Comparison: 03/22/2022 Bilateral Screening Mammogram, [facility]. 09/14/2024 Bilateral MG 3D diag mammo w/cad BRIDGER, [facility]. 09/28/2024 Bilateral MG diagnostic mammo BI wo CAD, [facility]. Findings: The axilla of the left breast was scanned. Left axilla is examined. No suspicious thickened cortex lymph nodes evident. Small lymph node is identified. No suspicious masses or cysts. Overall Assessment: Negative, BI-RAD 1 Electronically signed and approved by: Bruno Earl D.O. Radiologis
== END ==
LOC: WWCWWP 06:55
PROVIDERS: ATTEND Surgery
DX: C50.912 Malignant neoplasm of unspecified site of left female breast (principal); N63.32 Unspecified lump in axillary tail of the left breast; E78.00 Pure hypercholesterolemia, unspecified; K21.9 Gastro-esophageal reflux disease without esophagitis; R92.8 Other abnormal and inconclusive findings on diagnostic imaging of breast; Z17.0 Estrogen receptor positive status [ER+]; Z17.21 Progesterone receptor positive status; Z85.3 Personal history of malignant neoplasm of breast

== ENCOUNTER → 2024-11-09 | Outpatient (CLI) | payer BC ==
[2024-11-09 10:07] VITALS: BP 125/77; PULSE 66; RESP 16; TEMP 98.2
--- NOTE | 2024-11-09 11:05 | P.PN ---
Subjective Progress Note Date: 11/09/24 Principal diagnosis: Left breast invasive ductal carcinoma/right breast highly suspicious biopsy 11-09-24 History of Present Illness Reason for Consult: Biopsy-proven left breast invasive ductal carcinoma, right breast suspicious biopsy Requesting physician: Kenyatta Miller History of present illness: Alexa is a 54-year-old female seen in consultation for Dr. Valladares to singh curtis rding a biopsy-proven left breast invasive ductal carcinoma, and a right breast highly suspicious biopsy. She underwent a bilateral screening mammogram on 09-14-2024. This revealed a 25 mm lesion 7 cm from the nipple in the upper outer quadrant in the left breast and in the right breast a 14 mm lesion 4 cm from the nipple in the upper outer quadrant. She ultimately underwent an ultrasound-guided core biopsy of both lesions. The ultrasound on the left revealed invasive ductal carcinoma grade 2 on the right rare atypical foci suspicious for invasive ductal carcinoma. On the left this was ER/NY positive HER2 equivocal when initiallly seen. She felt a lesion in her left breast about 3 weeks ago, this has not changed. She had a mammogram about 6 months ago which was normal. She had a Grail test/Galleri done May 10 2024 which was negative. She had colon cancer found on colonoscopy and a colon resection about 18 months ago. This was done by Dr. Sumner at [facility]. She had a breast reduction done at 19. She had a left breast abscess drained in the left breast in the past. She is not complaining of any recent trauma or infection in the breast. She is not complaining of any nipple discharge or skin changes. HER2 status negative Genetic testing results negative PET scan done 10-22-24 does not show any metastatic disease Breast MRI 10-15-24; breast 3.4 x 1.5 cm lesion no right axillary adenopathy of concern, minimally prominent right internal thoracic chain lymph node Left breast irregular mass in the upper outer quadrant 2.9 x 2.6 cm Enlarged right level 1 axillary node present this is not seen on ultrasound The case was discussed with Dr. Urban from my medical oncology who felt that we should proceed with bilateral lumpectomies and sentinel node biopsies, not pursued trying to get an MRI guided biopsy of the questionable lymph node noted on MRI The patient has had this discussed with her and she has declined any attempted MRI guided biopsy of the lymph node of concern on the left side The patient recently returned from vacation and states that while on vacation she noticed some swelling under her left arm, additionally she was complaining o f some discomfort and pulling in the left breast as well as a feeling of heat. Today she does not feel the enlarged node nor does she feel that he heat. Breast MRI was done here and PET scan done at [facility]; The patient did not take the COVID exam, she had COVID multiple times. Caffeine: energy drink daily nicotine: none chocolate: occasional BCP: < 5 years in earyl 20's hormones: bio-T pellets for 7-8 years, last placed about three months ago Family History: patient: colon cancer Hormonal History: menarche: 14 (one twins)M3, age at first live : 30, breast fed: yes used clomid after the three miscarriages menopause: partial hysterectomy at 40; started hormones about 46 was having night sweats Surgical History: hysterectomy, left ovaries colon resection out patient all through the colon ankel fusion 2020 hiatal hernia Medical History: vivance occasional resperidal for high cholesterol difficulty swallowing refulx Social History: nicotine: none alcohol: occasional drugs: none Review of Systems - Constitutional Denies fever, Denies weight loss - EENT Eyes: denies blurred vision Ears: deny: decreased hearing, tinnitus Ears, nose, mouth and throat: Denies dysphagia - Breasts bilateral: as per HPI - Cardiovascular Denies chest pain, Denies shortness of breath - Respiratory Denies cough - Gastrointestinal Reports as per HPI - Genitourinary Genitourinary: Denies dysuria, Denies hematuria Menstruation: Reports post hysterectomy - Musculoskeletal Reports as per HPI - Integumentary Denies rash, Denies unusual bruising - Neurological Denies headaches, Denies syncope - Psychiatric Reports as per HPI - Endocrine Reports as per HPI - Hematologic/Lymphatic Denies easy bleeding, Denies easy bruising - Allergic/Immunologic Reports as per HPI Past Medical History Past Medical History: Osteoarthritis (OA) History of Any Multi-Drug Resistant Organisms: None Reported Past Surgical History: Section, Hysterectomy Past Anesthesia/Blood Transfusion Reactions: Postoperative Nausea & Vomiting (PONV) Past Psychological History: No Psychological Hx Reported Smoking Status: Never smoker Past Alcohol Use History: Occasional Past Drug Use History: None Reported - Past Family History Mother Family Medical History: No Reported History Medications and Allergies Home Medications Medication Instructions Recorded Confirmed Type No Known Home Medications 09/17/24 10/05/24 History Allergies Allergy/AdvReac Type Severity Reaction Status Date / Time No Known Allergies Allergy Verified 10/05/24 07:53 Objective - Vital Signs Vital signs: Vital Signs Temp 98.2 F 11/09/24 10:05 Pulse 66 11/09/24 10:05 Resp 16 11/09/24 10:05 BP 125/77 11/09/24 10:05 Pulse Ox 96 11/09/24 10:05 FiO2 Intake & Output 11/08/24 11/09/24 11/09/24 18:59 06:59 18:59 Weight 68.039 kg - Constitutional General appearance: Present: cooperative - EENT Eyes: Present: EOMI ENT: Present: hearing grossly normal - Neck Neck: Present: normal ROM - Respiratory Respiratory: bilateral: CTA - Cardiovascular Rhythm: regular Heart sounds: normal: S1, S2 - Integumentary Integumentary: Present: normal turgor - Musculoskeletal Musculoskeletal: Present: gait normal - Psychiatric Psychiatric: Present: A&O x's 3, appropriate affect, intact judgment & insight - Additional findings Additional findings: Breast Exam: BRA: 34D (was very large prior to the reduction not know the size) Inspection: Bilateral scars from prior reduction surgery, bilateral grade 2 ptosis Palpation: Right breast: Multi positional exam no dominant masses or nodules of concern fibrocystic changes right breast Right axilla: No adenopathy of concern Left breast: Multi positional exam approximately 2 x 3 cm mass in the upper outer quadrant no other dominant masses or nodules of concern Left axilla: No adenopathy of concern Assessment and Plan Assessment: Impression: 1. Left breast invasive ductal carcinoma ER/NY positive 2. Right breast core biopsy highly suspicious 3. High cholesterol 4. Reflux Plan: Bilateral needle localization lumpectomy, bilateral sentinel node injection, bilateral sentinel node biopsy, possible bilateral axillary node dissection, possible bilateral oncoplastic tissue transfer Assessment test done passed arm abduction with no difficulty Patient given preoperative education kit CC: Dr. Solares
== END ==
LOC: WWCWWP 09:41
PROVIDERS: ATTEND Surgery
DX: C50.912 Malignant neoplasm of unspecified site of left female breast (principal); E78.00 Pure hypercholesterolemia, unspecified; N63.20 Unspecified lump in the left breast, unspecified quadrant; K21.9 Gastro-esophageal reflux disease without esophagitis; Z17.0 Estrogen receptor positive status [ER+]; Z17.21 Progesterone receptor positive status

== ENCOUNTER 2024-11-13 09:47 | Day surgery (SDC) | payer BC ==
[2024-11-12 11:00] VITALS: BMI 25.0
[2024-11-13] MEDS ORDERED: LIDOCAINE 1% (10MG/ML) FOR IV START INTRADERMA PRN (10:02)
[2024-11-13] MEDS ORDERED: MIDAZOLAM 2 MG/2 ML VIAL IV PRN (10:02)
[2024-11-13] MEDS ORDERED: fentaNYL (PF) 50 MCG/ML 2 ML AMP IVP PRN (10:02)
[2024-11-13] MEDS ORDERED: HYDROmorphone 0.5 MG/0.5 ML SYRINGE IVP PRN (10:02)
[2024-11-13] MEDS: LACTATED RINGERS 1,000 ML IV SCH (10:24)
[2024-11-13] MEDS: ACETAMINOPHEN TAB 500 MG TAB PO PRN (10:24)
[2024-11-13] MEDS ORDERED: ALPRAZolam 0.5 MG TAB PO STA (10:25)
[2024-11-13] MEDS: ALPRAZolam 0.5 MG TAB PO ONE (10:25)
[2024-11-13] MEDS: IV FLUID CONTINUATION 1,000 ML IV ONE ×2 (10:27→16:20)
[2024-11-13] MEDS: LIDOCAINE 1% INJ 10MG/ML (20 ML MDV) SQ ONE (11:29)
[2024-11-13] MEDS: SODIUM BICARB 8.4% 50 ML VIAL (1 MEQ/ML) MISCELLANE ONE (11:29)
--- NOTE | 2024-11-13 11:31 | P.NAPBC ---
NAPBC Queries - NAPBC Queries Was patient's case review presented at [facility] tumor board? If no, comment.: Yes Was patient's pathology reviewed at [facility]? If no, comment.: Yes Was breast conservation surgery offered? If no, comment.: Yes Was sentinel node biopsy offered? If no, comment.: Yes Was diagnosis confirmed by percutaneous core biopsy? If no, comment.: Yes Is patient mastectomy patient?: No Was a preop referral to reconstructive surgeon offered?: No Clinical Stage: left breast Invasive ductal cancer [id number]+Her2- stage I; right breast highly suspicious lesion
[2024-11-13] MEDS: LIDOCAINE 1% INJ 10MG/ML (30 ML VIAL-PF) SQ ONE ×2 (12:02→15:16)
[2024-11-13] MEDS: ONDANSETRON 4 MG/2 ML VIAL IVP ONE (12:21)
[2024-11-13] MEDS: DEXAMETHASONE SOD PHOSPHATE 4 MG/ML 1 ML VIAL IV ONE (12:21)
[2024-11-13] MEDS: HEPARIN SODIUM,PORCINE 5,000 UNIT/ML 1 ML VIAL SQ PRN (12:22)
[2024-11-13] MEDS ORDERED: fentaNYL (PF) 50 MCG/ML 2 ML AMP ONE (12:26)
[2024-11-13] MEDS ORDERED: PROPOFOL 10 MG/ML 20 ML VIAL IV ONE (12:26)
[2024-11-13] MEDS ORDERED: ePHEDrine 50 MG/ML 1 ML VIAL ONE (12:26)
[2024-11-13] MEDS ORDERED: WATER FOR INJECTION, STERILE 10 ML VIAL IV ONE (12:26)
[2024-11-13] MEDS ORDERED: MIDAZOLAM 2 MG/2 ML VIAL ONE (12:26)
[2024-11-13] MEDS ORDERED: SUCCINYLCHOLINE CHLORIDE 200 MG/10 ML VIAL IV ONE (12:26)
[2024-11-13] MEDS ORDERED: LIDOCAINE 1% INJ 10MG/ML (20 ML MDV) ONE (12:26)
[2024-11-13] MEDS ORDERED: PHENYLEPHRINE-0.9% NACL SYG 1,000 MCG/10 ML SYRINGE ONE (12:26)
--- NOTE | 2024-11-13 12:49 | NM ---
EXAMINATION TYPE: NM sentinel node injection bilateral DATE OF EXAM: 11/13/2024 COMPARISON: NONE CLINICAL INDICATION: Female, 54 years old with history of Breast Cancer; TECHNIQUE AND FINDINGS: The procedure of sentinel lymph node injection was explained to the patient. The benefits, alternatives, and risks were discussed. An informed consent was then obtained. Overlying skin is cleaned with sterile alcohol. Following this, 516.0 Left/515.0 Right uCi Tc99m Til manocept was injected in the upper outer aspect of the bilateral nipple intradermally. The patient tolerated the procedure well without any immediate complication. The patient was kept in the radiology department for short stay after the procedure and then taken to surgery for surgical p rocedure what is presumed intraoperative gamma probe will be used for sentinel lymph node detection. IMPRESSION: Bilateral breast radiotracer injection for sentinel node localization as above. [facility], , 11/13/2024 12:46 PM
--- NOTE | 2024-11-13 14:55 | USB ---
EXAMINATION TYPE: US breast localization LT DATE OF EXAM: 11/13/2024 COMPARISON: NONE CLINICAL INDICATION: Female, 54 years old with history of C50.411 MALIGNANT NEOPLASM OF UPPER OUTER Q UADRANT; TECHNIQUE: Ultrasound guided needle localization with open biopsy FINDINGS: Lobulated mass at the left 2:00 position 7 cm from the nipple was localized sonographically. Standard sterile technique was utilized as well as appropriate local anesthesia with 1% lidocaine and bicarbo johanna. Under sonographic guidance a 5 cm localization needle was deployed with guidewire. Needle was r emoved and the patient was sent to the OR with guidewire in place. Specimen radiograph demonstrates the clip and mass to reside within the specimen. IMPRESSION: Successful needle localization with open biopsy left 2:00 lesion with clip. Pathology re sults are pending. [facility], , 11/13/2024 2:53 PM
--- NOTE | 2024-11-13 15:18 | P.BCAON ---
Date of Procedure: 11/13/24 Preoperative Diagnosis: Left breast invasive ductal carcinoma, right breast highly suspicious lesion Postoperative Diagnosis: Same Procedure(s) Performed: Bilateral needle localization lumpectomy, bilateral sentinel node biopsy, right breast oncoplastic tissue transfer 33.5 cm, left breast oncoplastic tissue transfer 45 cm Anesthesia: GETA Surgeon: Mary Lou Geiger Estimated Blood Loss (ml): 20 IV fluids (ml): 800 Pathology: other (Breast tissue lumpectomy bilateral, sentinel node biopsies bilaterally) Condition: stable Disposition: same day Indications for Procedure: Biopsy-proven left breast cancer, right breast highly suspicious lesion on b iopsy Operative Findings: Dense breast tissue Description of Procedure: The patient was first seen in the radiology department where needle localization of a suspicious lesion in the right breast was performed in needle localization of a known breast cancer in the left breast was performed. Additionally she had radiotracer injected in both periareolar areas. The patient was brought to the operative suite. Following induction of anesthesia interrogation of both axillas revealed that radiotracer had traveled to both sites. The patient was prepped and draped in a sterile fashion. The right breast was approached initially. Using the neoprobe to guide the area of greatest radioactivity in the axilla an incision was made. It was carried down a radioactive lymph node. This was excised. The 10-second count on the node was 5588, a second lymph node was identified and excised. The 10-second count was 3683. The 10-second background count was 17. No additional palpable adenopathy of concern was identified on the right. The wound was irrigated. The deep tissues were closed using 3-0 Vicryl suture. The skin was closed using 4-0 Mon ocryl. The area of the breast was approached. An incision was made and carried down to the shaft of the localizing needle. Surrounding tissue was excised. The specimen was 5.5 x 3 cm. The specimen was painted for orientation. Radiograph revealed that the area of concern had been removed including the clip. The wound was well irrigated. After reassured that hemostasis was attained titanium clips were placed. Surgicel in powder form was placed. Posterior dissection was onto the pectoralis muscle. A superior pillar 3 x 3 cm was developed. An inferior pillar 4 x 2 cm was developed. The pillars were brought together and closed in the defect. This was done using 3-0 Vicryl suture. Total oncoplastic tissue transfer 33.5 cm. Following this after we are sure that hemostasis was attained the deep tissues were closed using 3-0 Vicryl suture. The skin was closed using 4-0 Monocryl. Instruments and gloves were changed. The area of the left breast was approached. Using the neoprobe the area of greatest radioactivity in the axilla was identified. The incision was made and carried down to the radioactive lymph node. The 10-second count on the node when it was removed was 1103 . The background count was minimal. No additional palpable nodes of concern were identified. The wound was well irrigated. The deep tissues were brought together using 3-0 Vicryl suture after we are sure that hemostasis was attained. The skin was closed using 4-0 Monocryl. Following this the area of the breast was approached. The lesion was palpable and very close to the skin surface. Therefore anteriorly skin was removed and taken. The specimen was removed around the area of the localizing wire. Posteriorly dissection was onto the pectoralis muscle. The specimen was 5 cm x 3 cm. The lesion was painted for orientation. Radiograph of the specimen revealed the area of concern to been removed including the clip. The wound was well irrigated. Additional tissue was taken for a new medial margin. This was painted for orientation. After reassured that hemostasis was attained titanium clips were placed. Surgicel in powder form was placed. A inferior pillar was developed which was 5 x 3 cm. An inferior pillar liver was developed which was 5 x 3 cm. The pillars were brought together and secured in place to close the defect. Total oncoplastic tissue transfer 45 cm. After reassured that hemostasis was attained the deep tissues were closed using 3-0 Vicryl suture. This was followed by closure of the skin with 4-0 Monocryl. The patient tolerated the procedure in stable condition. All instrument and sponge counts were correct at the end of the case. - Sentinal Node Biopsy Operation performed with curative intent: Yes Tracer(s) used in upfront surgery (non-neoadjuvant): radioactive tracer Tracer(s) used in the neoadjuvant setting: N/A All nodes present at end of dye-filled channel removed: N/A All significantly radioactive nodes were removed: Yes All palpably suspicious nodes were removed: Yes
[2024-11-13 15:51] VITALS: RESP 12; TEMP 97.2
[2024-11-13 17:04] VITALS: BP 149/77; PULSE 64
--- NOTE | 2024-11-15 08:35 | MM ---
Reason for Exam: Additional evaluation requested from prior study. Last screening mammogram was performed 2 month(s) ago. Patient History: Menarche at age 14. First Full-Term at age 30. Late child-bearing (after 30). Hysterectomy at age 40. Postmenopausal. Colorectal cancer at or over age 50. Breast cancer, left, age 54. Currently using Estrogen, starting at age 47. 09/28/2024, US biopsy breast VAD RT on the Right side. 09/28/2024, Malignant US biopsy breast VAD LT on the left side. 1987, Bilateral Reduction. 07/2020, Excisional Biopsy on the Right side. Prior Study Comparison: 09/14/2024 Bilateral MG 3D diag mammo w/cad BRIDGER, [facility]. 09/28/2024 Bilateral MG diagnostic mammo BI wo CAD, [facility]. Tissue Density: Right: The breasts are heterogeneously dense, which may obscure small masses. Findings: Analyzed By CAD. Prior to scheduled bilateral needle localizations a true lateral view of the right breast was obtained. Clip in question is noted within the upper outer right breast. There is spiculation seen previously superior portion of the right breast 4 cm from the nipple does not persist and continues to improve since 2020 patient had a reported history of an abscess. Overall Assessment: Suspicious, BI-RAD 4 Management: Needle localization and excision of both breasts. . Results were given to the patient verbally at the time of exam. Patient should continue monthly self-breast exams. A clinical breast exam by your physician is recommended on an annual basis. This exam should not preclude additional follow-up of suspicious palpable abnormalities. Note on Judy scores and lifetime risk: 1. A Judy score greater than 3% is considered moderate risk. If this is the case, consider specialist referral to assess eligibility for a risk reducing agent. 2. If overall lifetime risk for the development of breast cancer is 20% or higher, the patient may qualify for future screening with alternating mammogram and breast MRI. [facility], , 11/14/2024 2:11 PM. Electronically signed and approved by: Ramírez Baxter M.D. Radiologis
--- NOTE | 2024-11-23 09:30 | MM ---
Reason for Exam: Post Procedure Mammogram. Last screening mammogram was performed 2 month(s) ago. Patient History: Menarche at age 14. First Full-Term at age 30. Late child-bearing (after 30). Hysterectomy at age 40. Postmenopausal. Colorectal cancer at or over age 50. Breast cancer, left, age 54. Currently using Estrogen, starting at age 47. 09/28/2024, US biopsy breast VAD RT on the Right side. 09/28/2024, Malignant US biopsy breast VAD LT on the left side. 1987, Bilateral Reduction. 07/2020, Excisional Biopsy on the Right side. Prior Study Comparison: 03/22/2022 Bilateral Screening Mammogram, [facility]. 09/14/2024 Bilateral MG 3D diag mammo w/cad BR[facility], [facility]. 09/28/2024 Bilateral MG diagnostic mammo BI wo CAD, [facility]. Tissue Density: The breasts are heterogeneously dense, which may obscure small masses. Pathology Description: Location: 2 o'clock. Needle Type: 5 cm Kopan Lobulated mass at the left 2:00 position 7 cm from the nipple was localized sonographically. Standard sterile technique was utilized as well as appropriate local anesthesia with 1% lidocaine and bicarbonate. Under sonographic guidance a 5 cm localization needle was deployed with guidewire. Needle was removed and the patient was sent to the OR with guidewire in place. Specimen radiograph demonstrates the clip and mass to reside within the specimen. IMPRESSION: Successful needle localization with open biopsy left 2:00 lesion with clip. Pathology results are pending. [facility], Workstation: [id number], 11/13/2024 2:53 PM. Pathology Results: Results pending. Pathology Description: Location: 11 o'clock. Needle Type: 5 cm Kopan The clip in small lesion at the right o'clock position 7 cm from the nipple measuring 7 x 5 mm was localized sonographically. Standard sterile technique was utilized as well as appropriate local anesthesia with 1% lidocaine and bicarbonate. Under sonographic guidance a 5 cm localization needle was deployed with guidewire. Needle was removed and the patient was sent to the OR with guidewire placed. Specimen radiograph demonstrates the clip to reside within the specimen. IMPRESSION: Successful needle localization with open biopsy right 11:00 lesion with clip. Pathology results are pending. [facility], , 11/13/2024 2:53 PM. Pathology Results: Result: Malignant, Invasive ductal carcinoma. A. RIGHT BREAST, LUMPECTOMY: Breast tissue with fibrocystic changes and previous biopsy site. No residual atypia or malignancy is identified. B. RIGHT SENTINEL NODE #1: Two lymph nodes negative for metastasis. CK7 immunostain performed on block B1, MARICEL immunostain performed on block B2, and CKAE1/3 immunostain performed on block B3 are confirmatory (controls appropriate). C. RIGHT SENTINEL NODE #2: Lymph node negative for metastasis. CK7 immunostain performed on block C1, MARICEL immunostain performed on block C2 and CKAE1/3 immunostain performed on block C3 are confirmatory (controls appropriate). D. RIGHT ADDITIONAL AXILLARY TISSUE: Lymph node negative for metastasis. E. LEFT AXILLARY SENTINEL LYMPH NODE #1: Lymph node positive for metastatic ductal mammary carcinoma. Greatest dimension of metastatic tumor deposit measures 11 mm. Focal limited extranodal extension is identified. CK7 immunostain performed on block E1, MARICEL immunostain performed on block E2, and CKAE1/3 immunostain performed on block E3, CAM5.2 immunostain performed on block E4, MOC31 immunostain performed on block E5, and Ep-Cam immunostain performed on block E6 are confirmatory (controls appropriate). F. LEFT NEW MEDIAL MARGIN: Benign breast with fibrocystic changes. G. LEFT BREAST, LUMPECTOMY: Invasive moderately differentiated ductal carcinoma (Grade 2) and intermediate grade DCIS. Margins negative for invasive malignancy or DCIS. Background fibrocystic changes and previous biopsy site. See Surgical Pathology Cancer Case Summary. Overall Assessment: Malignant Assessment: MG diagnostic mammo BI wo CAD - Bilateral: Known biopsy proven malignancy, BI-RAD 6 - Left. Management: Surgical Consultation of the left breast. Electronically signed and approved by: Ramírez Baxter M.D. Radiologis
== END 2024-11-13 17:24 | disposition home or self-care (01) ==
LOC: OR 09:47
PROVIDERS: ATTEND Surgery
DX: C50.412 Malignant neoplasm of upper-outer quadrant of left female breast (principal); C50.411 Malignant neoplasm of upper-outer quadrant of right female breast; Z78.0 Asymptomatic menopausal state; C19 Malignant neoplasm of rectosigmoid junction
CPT/HCPCS: 19301; 38525; 88342; 88307; 88341; 77066; 76098 ×2; 19083; 19285; 19084; 38792; C1819; A9520; J2250; J0330; J1644; J1100; J0690; J2405; J2003 ×2; J3010; J2704; J2371

== ENCOUNTER → 2024-11-29 | Outpatient (CLI) | payer BC ==
[2024-11-29 09:26] VITALS: BP 127/89; PULSE 59; RESP 17; TEMP 97.8
--- NOTE | 2024-11-29 09:30 | P.BCPO ---
Progress Note - Text Progress Note Date: 11/29/24 Alexa is a 54-year-old female status post right breast lumpectomy/left breast lumpectomy and bilateral sentinel node biopsy on 11-13-2024. Pathology revealed in the right breast that the biopsy site was removed but there was fibrocystic changes only with no residual atypia or malignancy. 3 lymph nodes were identified on the right side which were negative for malignancy. The left breast revealed a invasive moderately differentiated ductal carcinoma grade 2 margins negative for invasive malignancy or DCIS. The lesion was 3 cm. A sentinel lymph node was removed which was positive for metastatic ductal mammary carcinoma the greatest dimension was 11 mm. She is doing well at this time. Examination: Lungs: Clear Heart: Regular rate and rhythm Incision both breast and both axillas clean and dry A seroma is present in the left breast Impression: Probable seroma left breast Plan: Attempt at aspiration of seroma appointment radiation oncology Appointment medical oncology CC: Dr. Oconnor
== END ==
LOC: WWCWWP 09:08
PROVIDERS: ATTEND Surgery
DX: Z48.3 Aftercare following surgery for neoplasm (principal)